=== PATIENT | female | born 1955 | race Asian ===

== ENCOUNTER 2017-08-25 20:29 | Emergency (ER) | payer OTHER ==
[~2017-08-25] VITALS: Ht 157.5 cm; Wt 42.5 kg
[~2017-08-25 20:29] MED LIST: ATOR20TA86 PO; CLON0.1T PO; ENAL10TA2 PO; FERG325 PO; HYD25 PO; HYDR25TA84 PO; LABE200T PO; SODI650T PO
[2017-08-25 21:43] VITALS: BP 154/87
== END 2017-08-25 21:45 | disposition home or self-care (01) ==
LOC: EMS 20:42
DX: T82.49XA Other complication of vascular dialysis catheter, initial encounter (principal); I12.0 Hypertensive chronic kidney disease with stage 5 chronic kidney disease or end stage renal disease; N18.6 End stage renal disease; Z99.2 Dependence on renal dialysis; I25.10 Atherosclerotic heart disease of native coronary artery without angina pectoris; Z88.8 Allergy status to other drugs, medicaments and biological substances; Z88.6 Allergy status to analgesic agent; Z91.012 Allergy to eggs
CPT/HCPCS: 99281; 99283